=== PATIENT | female | born 1980 | race Caucasian/White ===

== ENCOUNTER → 2018-01-22 | Outpatient (CLI) | payer BC | LOC: CIMAGING 13:05 | PROVIDERS: ATTEND Hospitalist | DX: N63.22 Unspecified lump in the left breast, upper inner quadrant (principal); Z80.3 Family history of malignant neoplasm of breast | CPT/HCPCS: 76641-PO ==

== ENCOUNTER → 2018-11-05 | Outpatient (CLI) | payer BC | LOC: FIMAGING 12:08 | PROVIDERS: ATTEND Hospitalist | DX: R92.8 Other abnormal and inconclusive findings on diagnostic imaging of breast (principal); Z80.3 Family history of malignant neoplasm of breast ==

== ENCOUNTER 2018-12-23 07:15 | Emergency (ER) | payer BC ==
--- NOTE | 2018-12-23 07:32 | EDPHY ---
H & P Time Seen by Provider: 12/23/18 07:26 HPI/ROS: CHIEF COMPLAINT: Cerumen impaction HISTORY OF PRESENT ILLNESS: The patient is a 38-year-old female who comes to the emergency department complaining of cerumen impaction. She states that she was treated last week for a sinus infection. At the time her doctor told her she had a lot of cerumen in her right ear. Last night she tried to use some ear drops which she thinks made her symptoms worsen that she has difficulty hearing out of that ear now. No dizziness. No fever. No erythema. Severity: Moderate Modifying factors: None REVIEW OF SYSTEMS: Constitutional: denies: chills, fever, recent illness, recent injury EENTM: See HPI denies: blurred vision, double vision, nose congestion Respiratory: denies: cough, shortness of breath Cardiac: denies: chest pain, irregular heart rate, lightheadedness, palpitations Gastrointestinal/Abdominal: denies: abdominal pain, diarrhea, nausea, vomiting, blood streaked stools Genitourinary: denies: dysuria, frequency, hematuria, pain Musculoskeletal: denies: joint pain, muscle pain Skin: denies: lesions, rash, jaundice, bruising Neurological: denies: headache, numbness, paresthesia, tingling, dizziness, weakness Hematologic/Lymphatic: denies: blood clots, easy bleeding, easy bruising Immunologic/allergic: denies: HIV/AIDS, transplant 10 systems reviewed and negative except as noted EXAM: GENERAL: Well-appearing, somewhat anxious but in no acute distress. HEAD: Atraumatic, normocephalic. EYES: Pupils equal round and reactive to light, extraocular movements intact, sclera anicteric, conjunctiva are normal. ENT: Left tympanic membrane normal, right with cerumen impaction and mild abrasions surrounding, nares patent, oropharynx clear without exudates. Moist mucous membranes. NECK: Normal range of motion, supple without lymphadenopathy or JVD. LUNGS: Breath sounds clear HEART: Regular rate and rhythm without murmurs, rubs or gallops. ABDOMEN: Soft, nontender, normoactive bowel sounds. BACK: no spinal tenderness, step-offs or deformities EXTREMITIES: Normal range of motion, no pitting or edema. No clubbing or cyanosis. NEUROLOGICAL: Cranial nerves II through XII grossly intact. Normal speech, normal gait. 5/5 strength, normal movement in all extremities, normal sensation , normal reflexes PSYCH: Normal mood, normal affect. SKIN: Warm, dry, normal turgor, no visible rashes or lesions. Source: Patient Exam Limitations: No limitations - Medical/Surgical History Hx Asthma: No Hx Chronic Respiratory Disease: No Hx Diabetes: No Hx Cardiac Disease: No Hx Renal Disease: No Hx Cirrhosis: No Hx Alcoholism: No Hx HIV/AIDS: No Hx Splenectomy or Spleen Trauma: No - Family History Significant Family History: No pertinent family hx - Social History Alcohol Use: Sober Drug Use: None Constitutional: Initial Vital Signs Temperature (C) 36.7 C 12/23/18 07:31 Heart Rate 73 12/23/18 07:31 Respiratory Rate 20 12/23/18 07:31 Blood Pressure 120/72 12/23/18 07:31 O2 Sat (%) 96 12/23/18 07:31 O2 Delivery Mode Room Air Allergies/Adverse Reactions: No Known Allergies Allergy (Verified 12/23/18 07:27) Home Medications: Medication Instructions Recorded Iron 1 tab DAILY 08/26/13 Vitamins 1 tab PO DAILY 08/26/13 Amoxicillin 12/23/18 Medical Decision Making ED Course/Re-evaluation: 7:45 a.m. the patient's ears were successfully disimpacted with irrigation. She is feeling completely better. She does have some minor abrasions on the canal. We discussed treatment for these. She declines further workup or testing at this time and is eager to go home. Differential Diagnosis: Partial list of the Differential diagnosis considered include but were not limited to; cerumen impaction, abrasion and although unlikely based on the history and physical exam, I also considered otitis externa, otitis media. I discussed these differential diagnoses and the plan with the patient as well as the usual and expected course. The patient understands that the diagnosis is provisional and that in medicine we are not always correct and that further workup is often warranted. Usual and customary warnings were given. All of the patient's questions were answered. The patient was instructed to return to the emergency department should the symptoms at all worsen or return, otherwise to followup with the physician as we discussed. Departure - Departure Disposition: Home, Routine, Self-Care Clinical Impression: Impacted cerumen, right ear Condition: Fair Instructions: Cerumen Impaction (ED) Referrals: Spine,Donal, DO [Primary Care Provider] - As per Instructions
[2018-12-23 07:46] VITALS: BP 120/72
== END 2018-12-23 08:04 | disposition home or self-care (01) ==
LOC: CED 07:15
PROC: 3E1B78Z Irrigation of Ear using Irrigating Substance, Via Natural or Artificial Opening (ICD-10-PCS; principal; 2018-12-23)
DX: H61.21 Impacted cerumen, right ear (principal)
CPT/HCPCS: 99282-ER